=== PATIENT | male | born 1945 | race Caucasian/White ===

== ENCOUNTER 2016-12-03 23:41 | Emergency (ER) | payer MEDICARE ==
[~2016-12-03] VITALS: Ht 175.3 cm; Wt 108.9 kg
[2016-12-03 23:41] VITALS: BP_SYST 133
[2016-12-04 00:34] LABS: ANION GAP 7 (5-15); CALCIUM 8.6 mg/dL (8.4-11.0); CHLORIDE 105 mmol/L (98-107); CREATININE 1.69 mg/dL (0.55-1.30); GLUCOSE 76 mg/dL (70-99); POTASSIUM 4.3 mmol/L (3.5-5.1); SODIUM SERUM 140 mmol/L (136-145); UREA NITROGEN, BLOOD 32 mg/dL (8-21)
[2016-12-04 02:11] VITALS: BP_SYST 131
== END 2016-12-04 02:11 | disposition home or self-care (01) ==
LOC: SED 23:41
DX: E11.649 Type 2 diabetes mellitus with hypoglycemia without coma (principal); Z88.5 Allergy status to narcotic agent; Z88.6 Allergy status to analgesic agent
CPT/HCPCS: 36415; 80048; 99283

== ENCOUNTER 2018-12-21 03:21 | Emergency (ER) | payer MEDICARE ==
[~2018-12-21] VITALS: Ht 172.7 cm; Wt 96.6 kg
[~2018-12-21 03:21] MED LIST: ASPI-1155 PO; CALC-995 PO; FOLI1CAP PO; INSU100V SQ; LISI-209 PO; METO25TA3 PO; MYCO500T PO; PANT20TA2 PO; PRED1TAB PO; SIMV10TA2 PO; TACR0.5C PO; [UNRECOGNIZED DRUG - OTHER]; humulin
[2018-12-21 03:24] VITALS: BP_SYST 131
[2018-12-21] MEDS ORDERED: WARF1TAB2 PO (04:15)
[2018-12-21] MEDS ORDERED: HUMULIN INSULIN SQ (04:15)
[2018-12-21] MEDS ORDERED: HYDR20TA PO (04:15)
[2018-12-21] MEDS ORDERED: TACR0.5C PO (04:15)
[2018-12-21] MEDS ORDERED: AZIT250T PO (04:15)
[2018-12-21] MEDS ORDERED: DOCU-144 PO (04:15)
[2018-12-21] MEDS ORDERED: INSU100V SQ (04:15)
[2018-12-21] MEDS ORDERED: SULF1TAB3 PO (04:15)
[2018-12-21] MEDS ORDERED: VITD400 PO (04:15)
[2018-12-21 04:22] LABS: BASOPHILS % (AUTO) 0.3 % (0.0-2.0); EOSINOPHILS # (AUTO) 0.1 K/uL (0.0-0.4); EOSINOPHILS % (AUTO) 1.8 % (0.0-4.0); HEMATOCRIT 42.6 % (36-54); HEMOGLOBIN 13.7 g/dL (14.0-18.0); LYMPHOCYTES # (AUTO) 0.9 K/uL (1.0-5.5); MEAN CORPUSCULAR HEMOGLOBIN 29 pg (27-31); MEAN CORPUSCULAR HGB CONC 32 % (32-36); MEAN CORPUSCULAR VOLUME 90 fL (79.0-98.0); MONOCYTES # (AUTO) 0.6 K/uL (0.0-1.0); MONOCYTES % (AUTO) 7.9 % (1.7-9.3); NEUTROPHILS # (AUTO) 5.5 K/uL (1.8-7.7); PLATELET COUNT (AUTO) 208 K/uL (130-430); RED BLOOD CELL COUNT(AUTO) 4.73 MIL/uL (4.2-6.2); RED CELL DISTRIBUTION WIDTH 17.1 % (9.0-15.0); WHITE BLOOD COUNT (AUTO) 7.1 K/uL (4.8-10.8)
[2018-12-21 04:33] LABS: ANION GAP 12 (5-15); CALCIUM 8.2 mg/dL (8.4-11.0); CHLORIDE 107 mmol/L (98-107); GLUCOSE 100 mg/dL (70-99); POTASSIUM 3.6 mmol/L (3.5-5.1); SODIUM SERUM 141 mmol/L (136-145); UREA NITROGEN, BLOOD 28 mg/dL (8-21)
[2018-12-21 04:38] LABS: ALANINE AMINOTRANSFERASE 23 U/L (12-78); ALBUMIN 3.5 g/dL (3.4-4.8); ASPARTATE AMINOTRANSFERASE 19 U/L (10-37); TOTAL BILIRUBIN 0.3 mg/dL (0.0-1.0)
[2018-12-21 04:39] LABS: INR 1.4 (0.80-1.20)
[2018-12-21 04:45] LABS: PROTHROMBIN TIME 14.2 SECS (9.5-12.5)
[2018-12-21 04:49] LABS: BILIRUBIN,URINE NEGATIVE (NEGATIVE); CLARITY/URINE SL HAZY (CLEAR); COLOR,URINE YELLOW (YELLOW); GLUCOSE,URINE NEGATIVE (NEGATIVE); KETONES,URINE NEGATIVE (NEGATIVE); LEUKOCYTE ESTERASE ,URINE 2+ (NEGATIVE); NITRITE, URINE POSITIVE (NEGATIVE); PH,URINE 5.5 (5.0-8.0); PROTEIN URINE NEGATIVE (NEGATIVE); UROBILINOGEN,URINE 0.2 (0.2-1.0)
[2018-12-21 04:57] VITALS: BP_SYST 131
[2018-12-21 04:58] LABS: BLOOD, URINE TRACE (NEGATIVE)
[2018-12-21 05:05] LABS: BACTERIA,URINE MANY /HPF (None Seen); WBC,URINE 50-80 /HPF (0-3)
== END 2018-12-21 04:57 | disposition home or self-care (01) ==
LOC: SED 03:21
DX: E11.649 Type 2 diabetes mellitus with hypoglycemia without coma (principal); Z88.5 Allergy status to narcotic agent; Z88.6 Allergy status to analgesic agent; Z79.82 Long term (current) use of aspirin; Z79.4 Long term (current) use of insulin; Z79.899 Other long term (current) drug therapy
CPT/HCPCS: 36415; 80053; 81000-TC; 82962; 85025; 85610-TC; 85730-TC; 87086; 87186-TC; 99283

== ENCOUNTER 2021-10-24 12:23 | Inpatient (IN) | payer MEDICARE ==
[~2021-10-24] VITALS: Ht 175.3 cm; Wt 65.3 kg
[2021-10-24] VITALS (10 sets, daily range): BP systolic 77–129
[~2021-10-24 12:23] MED LIST changes: +DOCU-144 PO; +HUMULIN INSULIN SQ; +HYDR20TA PO; +SULF1TAB3 PO; +VITD400 PO; +WARF1TAB2 PO; +ZIT250 PO; -[UNRECOGNIZED DRUG - OTHER]; -humulin
--- NOTE | 2021-10-24 12:28 | NUR ---
1228 PT HAS A SKIN TEAR TO LEFT FOREARM SUSTANED BY EMS WHILE LIFTING ON THE GURNERY.
[2021-10-24] MEDS ORDERED: NACL 0.9% 1,000 ML IV ONE (12:30)
[2021-10-24] MEDS ORDERED: NACL 0.9% 2,000 ML IV ONE (12:45)
[2021-10-24 12:56] LABS: BASOPHILS % (AUTO) 0.5 % (0.0-2.0); EOSINOPHILS % (AUTO) 0.1 % (0.0-4.0); HEMATOCRIT 28.7 % (36-54); HEMOGLOBIN 9.4 g/dL (14.0-18.0); LYMPHOCYTES # (AUTO) 0.4 K/uL (1.0-5.5); LYMPHOCYTES % (AUTO) 4.4 % (20.5-51.5); MEAN CORPUSCULAR HEMOGLOBIN 31 pg (27-31); MEAN CORPUSCULAR HGB CONC 33 % (32-36); MEAN CORPUSCULAR VOLUME 94 fL (79.0-98.0); MONOCYTES # (AUTO) 0.4 K/uL (0.0-1.0); MONOCYTES % (AUTO) 5.1 % (1.7-9.3); NEUTROPHILS # (AUTO) 7.7 K/uL (1.8-7.7); NEUTROPHILS % (AUTO) 89.9 % (40.0-70.0); PLATELET COUNT (AUTO) 157 K/uL (130-430); RED BLOOD CELL COUNT(AUTO) 3.05 MIL/uL (4.2-6.2); RED CELL DISTRIBUTION WIDTH 17.5 % (9.0-15.0); WHITE BLOOD COUNT (AUTO) 8.6 K/uL (4.8-10.8)
[2021-10-24 13:01] LABS: ANION GAP 17 (5-15); CHLORIDE 111 mmol/L (98-107); CREATININE 5.49 mg/dL (0.55-1.30); GLUCOSE 179 mg/dL (70-99); POTASSIUM 3.9 mmol/L (3.5-5.1); SODIUM SERUM 135 mmol/L (136-145); UREA NITROGEN, BLOOD 93 mg/dL (8-21)
[2021-10-24 13:08] LABS: ACETONE, SERUM NEGATIVE (NEGATIVE)
--- NOTE | 2021-10-24 13:16 | NUR ---
12:30 B/P 62/33 12:33 B/P [place] 12:40 B/P 72/33 13:00 B/P 104/86 13:15 B/P 79/41
[2021-10-24 13:28] LABS: ALANINE AMINOTRANSFERASE 16 U/L (12-78); ASPARTATE AMINOTRANSFERASE 16 U/L (10-37); CALCIUM 6.3 mg/dL (8.4-11.0); TOTAL BILIRUBIN 0.1 mg/dL (0.0-1.0)
[2021-10-24 13:29] LABS: ALBUMIN 2.8 g/dL (3.4-4.8); C-REACTIVE PROTEIN QUANT 0.2 mg/dL (0-0.5)
--- NOTE | 2021-10-24 13:30 | NUR ---
13:30 18G RIGHT IJ BY SINTIA
--- NOTE | 2021-10-24 13:34 | NUR ---
EDMD AWARE OF CRITICAL LAB VALUE CA. 6.3 AND LOW CO2 7
[2021-10-24] MEDS ORDERED: NOREPINEPHRINE BITARTRATE 4 MG in NS 246 ML IV ONE (14:00)
--- NOTE | 2021-10-24 14:01 | NUR ---
F/C 16FR AYDEN COLORED URINE NO SEDIMENTS , AT BEDSIDE
[2021-10-24 14:14] LABS: BILIRUBIN,URINE NEGATIVE (NEGATIVE); BLOOD, URINE 2+ (NEGATIVE); COLOR,URINE YELLOW (YELLOW); GLUCOSE,URINE NEGATIVE (NEGATIVE); KETONES,URINE NEGATIVE (NEGATIVE); LEUKOCYTE ESTERASE ,URINE 3+ (NEGATIVE); NITRITE, URINE NEGATIVE (NEGATIVE); PROTEIN URINE 2+ (NEGATIVE); UROBILINOGEN,URINE 0.2 (0.2-1.0)
[2021-10-24 14:17] LABS: CLARITY/URINE HAZY (CLEAR)
[2021-10-24 14:32] LABS: BACTERIA,URINE MANY /HPF (None Seen); RBC,URINE 20-50 /HPF (0-3); WBC,URINE >100 /HPF (0-3)
--- NOTE | 2021-10-24 14:46 | NUR ---
Admit bed requested Patient will be admitted to care of Dr. TATE. Admitted to ICU unit. Diagnosis ACUTE RENAL FAILURE, SEVERE METABOLIC ACIDOSIS, DEHYDRATION Inpatient (Yes or No) YES Observation (Yes or No) NO Orientation concerns or request close to nursing station (Yes or No) NO Covid Status PENDING On vent or bipap NO Isolation requirements NO Needs a sitter NO From Home (Yes or if No enter name of facility) YES Requires Dialysis (Yes or No) NO Med Rec Completed (Yes of No) NO
[2021-10-24] MEDS ORDERED: SODIUM BICARBONATE 8.4% JECT 50 MEQ/50 ML SYRINGE ONE (14:59)
[2021-10-24] MEDS ORDERED: SODIUM BICARBONATE 8.4% JECT 50 MEQ/50 ML SYRINGE IVP ONE ×2 (15:00)
--- NOTE | 2021-10-24 15:03 | NUR ---
ASSISTING PRIMARY RN. LEVOPHED TITRATED TO 0.13 MCG/KG/MIN. BP 82/47 HR 85
--- NOTE | 2021-10-24 15:07 | NUR ---
LEVOPHED TITRATED UP TO 0.16 MCG/KG/MIN. BP 84/61 HR 86
[2021-10-24] MEDS ORDERED: HYDROCORTISONE SOD SUCC 100 MG/2 ML VIAL IVP ONE (17:00)
--- NOTE | 2021-10-24 17:00 | NUR ---
Called Dr. Dickerson with a consult,spoke with Guero from the exchange
--- NOTE | 2021-10-24 17:00 | NUR ---
ASSISTANCE REQUESTED FROM DOUG COLON, MEDS NOT GIVEN AT THIS TIME, WILL GET SUPPORT FROM ESTEVAN LESTER RN.
--- NOTE | 2021-10-24 17:13 | NUR ---
Called Dr. Chu with a consult, spoke with Janelle from the exchange
--- NOTE | 2021-10-24 17:17 | NUR ---
Called Dr. Snider with a consult,spoke with Michelle from the exchange
--- NOTE | 2021-10-24 17:25 | NUR ---
CONSULT: DR. FELI EDMOND HERE FOR CONSULT.
[2021-10-24] MEDS ORDERED: IPRATROPIUM/ALBUTEROL SULFATE 3 ML AMPUL.NEB (DUONEB) INH PRN (17:30)
[2021-10-24] MEDS ORDERED: CALCIUM GLUCONATE 2 GM in NS 100 ML IV ONE (17:30)
[2021-10-24] MEDS ORDERED: DEXTROSE 50% JECT 50 ML DISP.SYRIN IVP PRN (17:30)
[2021-10-24] MEDS ORDERED: metroNIDAZOLE 250 MG TABLET PO ONE (17:30)
[2021-10-24] MEDS ORDERED: NOREPINEPHRINE BITARTRATE 32 MG in NS 218 ML IV PRN (17:30)
--- NOTE | 2021-10-24 17:35 | NUR ---
CONSULT: DR. TOBI BRITTON HERE TO SEE PATIENT.
--- NOTE | 2021-10-24 17:42 | NUR ---
PT VOMITED AGAIN INTO NON-REBREATHER, QUICKLY SUCTIONED TO AVOID POSSIBLE ASPIRATION PNEUMONIA, DR APPLE INFORMED., NO ORDERS RECEIVED.
[2021-10-24] MEDS ORDERED: NOREPINEPHRINE BITARTRATE 4 MG in NS 246 ML IV PRN (17:45)
--- NOTE | 2021-10-24 18:27 | NUR ---
ADMISSION ASSESSMENT DONE AT BEDSIDE WITH HELP OF DTR, WENT HOME TO GET MED LIST.
[2021-10-24] MEDS: NACL 0.9% 1,000 ML IV ONE (19:00)
[2021-10-24 19:02] LABS: ANION GAP 17 (5-15); CHLORIDE 113 mmol/L (98-107); CREATININE 5.71 mg/dL (0.55-1.30); GLUCOSE 181 mg/dL (70-99); POTASSIUM 3.8 mmol/L (3.5-5.1); SODIUM SERUM 137 mmol/L (136-145); UREA NITROGEN, BLOOD 88 mg/dL (8-21)
--- NOTE | 2021-10-24 19:21 | NUR ---
NOTED IV FLUIDS SODIUM BICARB GOING IN WITH LEVOPHED. DOUG GARCIA INFORMED.
--- NOTE | 2021-10-24 19:30 | NUR ---
REPORT GIVEN TO NICOLASA LÓPEZ. INFOMRED CN, CALCIUM GLUCONATE N/A IN PYXIS, ALL OTHER MEDS TO BE GIVEN BY NIGHT RENE BALDWIN. SHE VERBALIZED UNDERSTANDING.
[2021-10-24] MEDS: IPRATROPIUM/ALBUTEROL SULFATE 3 ML AMPUL.NEB (DUONEB) INH SCH (19:51)
[2021-10-24] MEDS ORDERED: CALCIUM GLUCONATE 1 GM/10 ML VIAL ONE (20:13)
[2021-10-24] MEDS: CLINDAMYCIN 600 mg/50mL D5W 50 ML IV SCH (20:33)
[2021-10-24] MEDS: CEFEPIME 1 GM in D5W 50 ML IV SCH (20:35)
[2021-10-24] MEDS: TACROLIMUS ANHYDROUS 0.5 MG CAPSULE (PROGRAF) PO SCH (21:00)
[2021-10-24] MEDS ORDERED: mycophenolate mofetiL 250 MG CAPSULE PO SCH (21:00)
[2021-10-24] MEDS: LACTOBACILLUS RHAMNOSUS GG 1 CAP CAPSULE PO SCH (21:00)
[2021-10-24] MEDS: metroNIDAZOLE 250 MG TABLET PO SCH (22:00)
[2021-10-24 22:27] LABS: INR > 9.0 (0.80-1.20); PROTHROMBIN TIME > 90.0 SECS (9.5-12.5)
[2021-10-24] MEDS: SODIUM BICARBONATE 8.4% JECT 150 MEQ in D5W 1,000 ML IVP SCH (22:40)
[2021-10-24] MEDS ORDERED: PHYTONADIONE 10 MG/ML AMP SUBCUT ONE (23:15)
[2021-10-25] VITALS (25 sets, daily range): BP systolic 97–142
[2021-10-25] MEDS: HYDROCORTISONE SOD SUCC 100 MG/2 ML VIAL IVP SCH ×4 (00:25→19:21)
[2021-10-25] MEDS: CLINDAMYCIN 600 mg/50mL D5W 50 ML IV SCH ×4 (00:26→19:23)
[2021-10-25] MEDS: INSULIN REGULAR, HUMAN 100 UNITS/ML, 10 ML VIAL (humuLIN R) SUBCUT PRN ×4 (00:45→19:19)
[2021-10-25] MEDS: IPRATROPIUM/ALBUTEROL SULFATE 3 ML AMPUL.NEB (DUONEB) INH SCH ×4 (01:00→19:40)
[2021-10-25] MEDS: SODIUM BICARBONATE 8.4% JECT 150 MEQ in D5W 1,000 ML IVP SCH ×2 (02:12→19:22)
[2021-10-25] MEDS: KCL 40 mEq in 100 mL (PREMIX) 100 ML IV SCH ×2 (03:15→23:00)
--- NOTE | 2021-10-25 06:00 | NUR ---
--RECEIVED PT AWAKE/ALERT BUT CONFUSED. PT KEPT STATING THAT HE WAS AT HOME. PT IS A NEW ADMIT FROM HOME. RECEIVED REPORT FROM RENE WESTFALL. PT'S FAMILY/ AT BEDSIDE. PT HAS O2 2L AND SOUNDS SLIGHTLY CONGESTED. PT HAS BEEN IN SR/S.TACH-NO ECTOPY. HR WENT UP TO 160-180'S BRIEFLY. CN TEO IS AWARE. STAT EKG DONE-SHOWS S.TACH. PT ALSO GIVEN NS BOLUS-1LITER. PT HAS RIGHT EJ WITH LEVOPHED DRIP-WAS AT 0/16MCG, NOW DOWN TO 0.08MCG. BP HAS BEEN WNL. PT ALSO HAS BICARB DRIP AT 150CC/HR VIA LEFT ARM PIC/AC. PT HAS ELEVATED COAG LEVELS WITH INR OF 9.0. PT HAS BEEN BLEEDING SLOWLY FROM SKIN TEARS IN RIGHT ARM(DRSG APPLIED) AND URINE IS HEMATURIC. PT HAS 1000CC OUT(DARK RED-RUST COLOR WITH YELL. PUS). PT ALSO HAS BEEN HAVING LARGE AMT OF BRN/BUTCHER DIARRHEA. STOOL SPEC. SENT FOR C.DIFF AND OB. AM LABS DONE. PT HAS STAGE 2 SACRAL DECUB. PT WAS TRYING TO GET OUT OF BED EARLIER. BED ALARM IS ON AND PT IS CLOSE TO NURSING STATION. BATH AND LINEN CHANGED DONE. PT ENDORSED TO RENE BALDWIN IN STABLE BUT GUARDED COND. SHAWNEE LÓPEZ
--- NOTE | 2021-10-25 06:00 | NUR ---
FURTHER NOTE: DR. BRITTON CONTACTED ALSO LAST NIGHT CONCERNING ELEVATED INR OF 9.0(CRITICAL LAB). VIT K 5MG ORD. SUBQ. DOUG BRUCE IS AWARE. COAG LEVELS ORD FOR AM LABS. SHAWNEE LÓPEZ
[2021-10-25] MEDS: metroNIDAZOLE 250 MG TABLET PO SCH ×3 (06:56→22:00)
[2021-10-25 07:57] LABS: PROTHROMBIN TIME > 90.0 SECS (9.5-12.5)
[2021-10-25 07:58] LABS: INR > 9.0 (0.80-1.20)
[2021-10-25] MEDS: CHOLECALCIFEROL (VITAMIN D3) 2,000 UNIT TABLET PO SCH (09:00)
[2021-10-25] MEDS: LACTOBACILLUS RHAMNOSUS GG 1 CAP CAPSULE PO SCH ×2 (09:00→21:00)
[2021-10-25] MEDS: ASPIRIN 81 MG TAB.CHEW PO SCH (09:00)
[2021-10-25 10:16] LABS: BASOPHILS % (AUTO) 0.1 % (0.0-2.0); HEMATOCRIT 22.8 % (36-54); HEMOGLOBIN 7.5 g/dL (14.0-18.0); LYMPHOCYTES # (AUTO) 0.1 K/uL (1.0-5.5); LYMPHOCYTES % (AUTO) 0.9 % (20.5-51.5); MEAN CORPUSCULAR HEMOGLOBIN 30 pg (27-31); MEAN CORPUSCULAR HGB CONC 33 % (32-36); MEAN CORPUSCULAR VOLUME 93 fL (79.0-98.0); MONOCYTES # (AUTO) 0.2 K/uL (0.0-1.0); MONOCYTES % (AUTO) 2.9 % (1.7-9.3); NEUTROPHILS # (AUTO) 7.1 K/uL (1.8-7.7); NEUTROPHILS % (AUTO) 96.1 % (40.0-70.0); PLATELET COUNT (AUTO) 122 K/uL (130-430); RED BLOOD CELL COUNT(AUTO) 2.45 MIL/uL (4.2-6.2); RED CELL DISTRIBUTION WIDTH 17.7 % (9.0-15.0); WHITE BLOOD COUNT (AUTO) 7.4 K/uL (4.8-10.8)
--- NOTE | 2021-10-25 10:32 | NUR ---
Discharge Planning: DCP faxed pt referral to [facility].
[2021-10-25] MEDS: SIMVASTATIN 10 MG TABLET PO SCH (10:38)
[2021-10-25] MEDS: TACROLIMUS ANHYDROUS 0.5 MG CAPSULE (PROGRAF) PO SCH ×2 (10:38→21:00)
[2021-10-25 10:46] LABS: ANION GAP 16 (5-15); CHLORIDE 107 mmol/L (98-107); CREATININE 5.27 mg/dL (0.55-1.30); SODIUM SERUM 134 mmol/L (136-145); UREA NITROGEN, BLOOD 75 mg/dL (8-21)
[2021-10-25 10:59] LABS: POTASSIUM 2.7 mmol/L (3.5-5.1)
[2021-10-25] MEDS ORDERED: PHYTONADIONE 10 MG/ML AMP SUBCUT ONE (11:00)
[2021-10-25 11:01] LABS: CALCIUM 5.9 mg/dL (8.4-11.0); GLUCOSE 448 mg/dL (70-99)
[2021-10-25 11:11] LABS: ALBUMIN 2.2 g/dL (3.4-4.8); BILIRUBIN,DIRECT 0.2 mg/dL (0.0-0.3); PHOSPHORUS 4.9 mg/dL (2.7-4.5); TOTAL BILIRUBIN 0.3 mg/dL (0.0-1.0)
[2021-10-25] MEDS ORDERED: POTASSIUM CHLORIDE 40 MEQ in D5W 250 ML IV ONE (11:15)
[2021-10-25] MEDS ORDERED: PANTOPRAZOLE SODIUM 40 MG/VIAL (PROTONIX) IVP ONE (11:30)
[2021-10-25] MEDS ORDERED: CALCIUM GLUCONATE 2 GM in NS 100 ML IV ONE ×2 (13:00→18:45)
--- NOTE | 2021-10-25 15:09 | NUR ---
Dietitian Recommendations * Consider GI consult * Consider advance diet if/when medically appropriate (soft (low fiber/bland) diet) MADHU, RD Please refer to Nutrition Assessment for details. Addendum: 10/25/21 at [address] Amended: Links added.
--- NOTE | 2021-10-25 16:52 | NUR ---
WOUND EVALUATION: Wound Consult received from Dr. Parker. Thank you, Dr. Parker, for the consult. Patient received in a Sabinal Bed with an IsoFlex YENNI mattress, awake, drowsy, and oriented. Patient is unable to turn in bed independently. Lukas Score is a 13. Past Medical History: Hypertension, anticoagulation with Coumadin, lung transplant for pulmonary fibrosis in 2013. Patient admitted with severe Metabolic Acidosis and DAVID. Recent Labs: WBC 7.4, RBC 2.45, hemoglobin 7.5, hematocrit 22.8, sodium 134, potassium 2.7, BUN 75, creatinine 5.27, glucose 448, POC glucose 411, calcium 5.9, phosphorus 4.9, serum total protein 3.7, albumin 2.2, PT > 90, INR > 9.0, PTT 93.7. Microbiology: MRSA screen results in progress. Stool C. difficile results in progress. Stool occult blood results in progress. Blood culture results x2 in progress. Urine culture results in progress. Second MRSA screen results in progress. Intrinsic factors that delay wound healing: Acute Kidney Injury, severe anemia from possible blood loss. Extrinsic factors that delay wound healing: Decreased mobility. Wound Assessment: 1. Coccygeal area: Stage 3 pressure ulcer, present on admission. Wound bed has 90% pink tissue, 10% red tissue. No odor, no drainage. Periwound intact. Wound measures 1.7 cm x 2.3 cm. Recommend: Cleanse wound with normal saline. Apply moisture barrier cream to wound and beto-wound. Apply hydrogel to wound bed. Cover with foam dressing. Perform wound care daily, and as needed for dressing soiling or dislodgement. Also recommend: Reposition patient side to side only every 2 hours with pillow support and off-load pressure areas with pillows for pressure re-distribution. Offload, elevate and float bilateral heels with pillows. Perform skin care and monitor skin integrity Q shift. Use moisture barrier cream on buttocks and other moisture susceptible areas QID and as needed for soiling. Place patient on a low air-loss mattress. Addendum: 10/25/21 at 1820 by Aime Duggan RN Error, Venelex ointment, not Hydrogel to wound bed.
[2021-10-25 18:22] LABS: ANION GAP 11 (5-15); CHLORIDE 104 mmol/L (98-107); CREATININE 5.02 mg/dL (0.55-1.30); SODIUM SERUM 136 mmol/L (136-145); UREA NITROGEN, BLOOD 78 mg/dL (8-21)
[2021-10-25 18:31] LABS: GLUCOSE 602 mg/dL (70-99); POTASSIUM 2.4 mmol/L (3.5-5.1)
[2021-10-25] MEDS ORDERED: COMMUNICATION ORDER XX ONE (18:45)
[2021-10-25] MEDS: CEFEPIME 1 GM in D5W 50 ML IV SCH (19:00)
[2021-10-25] MEDS ORDERED: CALCIUM GLUCONATE 1 GM in NS 100 ML IV ONE (19:15)
[2021-10-25] MEDS ORDERED: LOPERAMIDE HCL 2 MG CAPSULE PO PRN (22:00)
[2021-10-25] MEDS: LR 1,000 ML IV SCH (22:00)
[2021-10-26] VITALS (22 sets, daily range): BP systolic 99–156
[2021-10-26] MEDS: IPRATROPIUM/ALBUTEROL SULFATE 3 ML AMPUL.NEB (DUONEB) INH SCH ×4 (01:00→20:28)
[2021-10-26] MEDS: LR 1,000 ML IV SCH ×4 (04:40→23:32)
[2021-10-26] MEDS: CLINDAMYCIN 600 mg/50mL D5W 50 ML IV SCH ×2 (06:00)
[2021-10-26] MEDS: HYDROCORTISONE SOD SUCC 100 MG/2 ML VIAL IVP SCH ×4 (06:00→22:00)
[2021-10-26] MEDS: metroNIDAZOLE 250 MG TABLET PO SCH (06:00)
[2021-10-26 06:30] LABS: INR 1.5 (0.80-1.20); PROTHROMBIN TIME 14.9 SECS (9.5-12.5)
[2021-10-26 07:21] LABS: BASOPHILS % (AUTO) 0.3 % (0.0-2.0); EOSINOPHILS # (AUTO) 0.1 K/uL (0.0-0.4); EOSINOPHILS % (AUTO) 1.3 % (0.0-4.0); LYMPHOCYTES # (AUTO) 0.1 K/uL (1.0-5.5); LYMPHOCYTES % (AUTO) 1.4 % (20.5-51.5); MEAN CORPUSCULAR HEMOGLOBIN 31 pg (27-31); MEAN CORPUSCULAR HGB CONC 34 % (32-36); MEAN CORPUSCULAR VOLUME 91 fL (79.0-98.0); MONOCYTES # (AUTO) 0.3 K/uL (0.0-1.0); MONOCYTES % (AUTO) 3.9 % (1.7-9.3); NEUTROPHILS # (AUTO) 6.3 K/uL (1.8-7.7); NEUTROPHILS % (AUTO) 93.1 % (40.0-70.0); PLATELET COUNT (AUTO) 130 K/uL (130-430); RED CELL DISTRIBUTION WIDTH 16.7 % (9.0-15.0); WHITE BLOOD COUNT (AUTO) 6.7 K/uL (4.8-10.8)
[2021-10-26] MEDS: ASPIRIN 81 MG TAB.CHEW PO SCH ×2 (08:35→08:47)
[2021-10-26] MEDS: LACTOBACILLUS RHAMNOSUS GG 1 CAP CAPSULE PO SCH ×2 (08:35→21:00)
[2021-10-26] MEDS: TACROLIMUS ANHYDROUS 0.5 MG CAPSULE (PROGRAF) PO SCH ×2 (08:36→21:00)
[2021-10-26] MEDS: SIMVASTATIN 10 MG TABLET PO SCH (08:38)
[2021-10-26] MEDS: BALSAM PERU/CASTOR OIL 56.7 GM OINT...G. TP SCH (08:38)
[2021-10-26] MEDS: CHOLECALCIFEROL (VITAMIN D3) 2,000 UNIT TABLET PO SCH (08:41)
[2021-10-26 08:45] LABS: ALANINE AMINOTRANSFERASE 12 U/L (12-78); ALBUMIN 2.1 g/dL (3.4-4.8); ANION GAP 13 (5-15); ASPARTATE AMINOTRANSFERASE 13 U/L (10-37); CHLORIDE 109 mmol/L (98-107); CREATININE 5.16 mg/dL (0.55-1.30); GLUCOSE 278 mg/dL (70-99); POTASSIUM 3.1 mmol/L (3.5-5.1); SODIUM SERUM 138 mmol/L (136-145); TOTAL BILIRUBIN 0.3 mg/dL (0.0-1.0); UREA NITROGEN, BLOOD 82 mg/dL (8-21)
[2021-10-26] MEDS ORDERED: PANTOPRAZOLE SODIUM 40 MG/VIAL (PROTONIX) IVP SCH (09:00)
[2021-10-26 09:01] LABS: RED BLOOD CELL COUNT(AUTO) 1.77 MIL/uL (4.2-6.2)
[2021-10-26 09:02] LABS: HEMATOCRIT 16.1 % (36-54); HEMOGLOBIN 5.5 g/dL (14.0-18.0)
[2021-10-26 09:08] LABS: CALCIUM 5.9 mg/dL (8.4-11.0)
[2021-10-26] MEDS ORDERED: INSULIN GLARGINE 100 UNITS/ML 10 ML VIAL SUBCUT ONE (09:30)
[2021-10-26] MEDS ORDERED: POTASSIUM CHLORIDE 20 MEQ TAB.PRT.SR PO ONE (09:45)
[2021-10-26] MEDS ORDERED: SODIUM BICARBONATE 650 MG TABLET PO ONE (10:00)
[2021-10-26 10:12] LABS: LYMPHOCYTES # (AUTO) 0.1 K/uL (1.0-5.5); MONOCYTES # (AUTO) 0.3 K/uL (0.0-1.0); NEUTROPHILS # (AUTO) 6.5 K/uL (1.8-7.7); NEUTROPHILS % (AUTO) 94.1 % (40.0-70.0); PLATELET COUNT (AUTO) 107 K/uL (130-430); WHITE BLOOD COUNT (AUTO) 6.9 K/uL (4.8-10.8)
[2021-10-26 10:16] LABS: BASOPHILS % (AUTO) 0.1 % (0.0-2.0); LYMPHOCYTES % (AUTO) 1.2 % (20.5-51.5); MEAN CORPUSCULAR HEMOGLOBIN 30 pg (27-31); MEAN CORPUSCULAR HGB CONC 33 % (32-36); MEAN CORPUSCULAR VOLUME 91 fL (79.0-98.0); MONOCYTES % (AUTO) 4.6 % (1.7-9.3); RED CELL DISTRIBUTION WIDTH 17.1 % (9.0-15.0)
[2021-10-26 10:19] LABS: RED BLOOD CELL COUNT(AUTO) 1.84 MIL/uL (4.2-6.2)
[2021-10-26 10:20] LABS: HEMATOCRIT 16.7 % (36-54); HEMOGLOBIN 5.6 g/dL (14.0-18.0)
[2021-10-26] MEDS ORDERED: CALCIUM GLUCONATE 2 GM in NS 100 ML IV ONE (11:00)
[2021-10-26] MEDS: SODIUM BICARBONATE 650 MG TABLET PO SCH ×2 (11:52→17:34)
[2021-10-26] MEDS: INSULIN REGULAR, HUMAN 100 UNITS/ML, 10 ML VIAL (humuLIN R) SUBCUT PRN ×2 (12:50→17:56)
--- NOTE | 2021-10-26 15:53 | NUR ---
RECV'D PT FROM VAL RN. PT AAO, FORGETFUL AT TIMES. VSS, AFEBRILE. NAD, DENIES ANY SOB/PAIN. CONT ON CARDIAC MONTIOR WITH ST NOTED RATE 100-110'S. DENIES ANY CP. STG 2 TO SACRUM. PETECHIAE TO BILATERAL LOWER EXTREMITIES NOTED. BILATERAL UPPER EXTREMITIES WITH EDEMA AND LARGE HEMATOMAS. PRESSURE DRESSING TO RIGHT FOREARM. REMOVED DRESSING, ARM NOTED WITH SMALL SKIN TEARS. SKIN LOOSE AND THIN. DRESSING TO LEFT FOREARM C/D/I. AM H/H 5.05/27. DR. MADRID AWARE AND WANTED REPEAT. REPEAT HGB 5.6. ORDER TO TRANSFUSE [address] MADRID MADE AWARE OF 3 UNIT OF [facility] REPORTEDLY DAMAGED CAUSING DELAY IN [place]. INR 1.[address] EDMOND ORDERED TO NOT TRANSFUSE 3 UNIT OF [facility]. 1ST UNIT OF [facility] TRANSFUSED WITHOUT A/R NOTED. FAMILY AT . PICC LINE PATENT, DRESSING C/D/I. RIGHT EJ IV ACCESS PATENT. TOLERATING CLEAR LIQUIDS WELL WITHOUT N/V. RECV'D CALL FROM [facility], UPDATED ON STATUS. AUTH GIVEN FOR TODAY. PT POSSIBLE TRANSFER TOMORROW TO [facility] WHEN MORE STABLE. NO ACTIVE BLEEDING NOTED. ALL NEEDS ATTENDED TO. 2ND UNIT OF [facility] CURRENTLY TRANSFUSING. WILL CONT TO MONITOR.
[2021-10-26] MEDS: CEFEPIME 1 GM in D5W 50 ML IV SCH (18:24)
[2021-10-26 18:26] LABS: BASOPHILS % (AUTO) 0.2 % (0.0-2.0); HEMATOCRIT 24.1 % (36-54); HEMOGLOBIN 8.2 g/dL (14.0-18.0); LYMPHOCYTES # (AUTO) 0.1 K/uL (1.0-5.5); LYMPHOCYTES % (AUTO) 1.2 % (20.5-51.5); MEAN CORPUSCULAR HEMOGLOBIN 30 pg (27-31); MEAN CORPUSCULAR HGB CONC 34 % (32-36); MONOCYTES # (AUTO) 0.6 K/uL (0.0-1.0); MONOCYTES % (AUTO) 5.4 % (1.7-9.3); NEUTROPHILS # (AUTO) 9.9 K/uL (1.8-7.7); NEUTROPHILS % (AUTO) 93.2 % (40.0-70.0); PLATELET COUNT (AUTO) 97 K/uL (130-430); RED BLOOD CELL COUNT(AUTO) 2.72 MIL/uL (4.2-6.2); RED CELL DISTRIBUTION WIDTH 16.7 % (9.0-15.0); WHITE BLOOD COUNT (AUTO) 10.7 K/uL (4.8-10.8)
[2021-10-26 18:27] LABS: MEAN CORPUSCULAR VOLUME 89 fL (79.0-98.0)
[2021-10-26 18:56] LABS: ANION GAP 16 (5-15); CHLORIDE 106 mmol/L (98-107); CREATININE 4.81 mg/dL (0.55-1.30); GLUCOSE 251 mg/dL (70-99); SODIUM SERUM 136 mmol/L (136-145); UREA NITROGEN, BLOOD 72 mg/dL (8-21)
[2021-10-26 18:58] LABS: POTASSIUM 2.8 mmol/L (3.5-5.1)
[2021-10-26 18:59] LABS: CALCIUM 6.3 mg/dL (8.4-11.0)
--- NOTE | 2021-10-26 19:14 | NUR ---
CALLED BY LAB FOR CRITICAL POTASSIUM 2.8 AND CALCIUM 6.3. PAGED DR. BRITTON TO UPDATE. WAITING FOR CALL BACK. ENDORSED CARE TO MUSHROOM CUTTER JOANNE.
--- NOTE | 2021-10-26 19:22 | NUR ---
CONSULT PAGED DR RICE FOR A CONSULT, SPOKE TO ANSWERING SERVICE, CHRISS, HE STATED THAT DOCTOR BRANDT IS STOCK PARTS FABRICATOR TONIGHT.
[2021-10-26] MEDS: PANTOPRAZOLE SODIUM 40 MG/VIAL (PROTONIX) IVP SCH (21:00)
--- NOTE | 2021-10-26 22:35 | NUR ---
TRANSFER OF CARE PATIENT RECEIVED AT THIS TIME TO [facility] FLOOR, ROOM 118B. PATIENT REPORT GIVEN AT BEDSIDE FROM RENE JOSEPH. AT THIS TIME, PATIENT IS RESTING IN BED, STABLE, NO SIGNS OF RESPIRATORY DISTRESS. IS AT BEDSIDE. AT THIS TIME, PATIENT IS FULLY ALERT AT THIS TIME, HE DEMONSTRATED BACK CORRECT USAGE OF CALL LIGHT. RICHARDS IS SECURED AND DRAINING PER GRAVITY. PATIENT VERBALIZES NO PAIN. PLAN OF CARE COMMUNICATED TO THE PATIENT AND HIS JUANJOSE AT BEDSIDE. BED IS LOCKED, ALARMED, AND AT THIS LOWEST LEVEL. FALL, SAFETY, RESPIRATORY, AND ASPIRATION PRECAUTIONS WILL BE TAKEN THROUGHOUT THE SHIFT.
[2021-10-27 00:01] VITALS: BP_SYST 124
[2021-10-27] MEDS: IPRATROPIUM/ALBUTEROL SULFATE 3 ML AMPUL.NEB (DUONEB) INH SCH ×4 (01:00→20:17)
--- NOTE | 2021-10-27 01:50 | NUR ---
PATIENT WOKE UP CONFUSED PATIENT WOKE UP CONFUSED AT THIS TIME, HE FORGOT THAT HE IS WEAK AND ALMOST ATTEMPTED TO GET OUT OF BED. PATIENT ASKED IF HE CAN CALL HIS , PATIENT INFORMED THAT IT IS ALMOST 2 AM, HE INSISTED TO CALL HIS BECAUSE "SHE'S EXPECTING MY CALL". HELPED PATIENT CALL WITH BEDSIDE PHONE, PATIENT SAID "[facility] COME PICK ME UP OR I'M GOING TO GET OUT OF BED AND FALL. OR SEND SOMEBODY TO GET ME NOW" PATIENT REORIENTED TO HIS SITUATION. ALSO COMMUNICATED PLAN WITH PATIENT'S , TO TELL PATIENT THAT HIS WILL COME BACK AQUATICS DIRECTOR, TO HELP KEEP PATIENT CALM DURING THE NIGHT. BED IS LOCKED, ALARMED, AND AT THE LOWEST LEVEL.
[2021-10-27] MEDS: HYDROCORTISONE SOD SUCC 100 MG/2 ML VIAL IVP SCH ×2 (06:13→17:13)
[2021-10-27] MEDS: LR 1,000 ML IV SCH ×3 (06:13→22:13)
[2021-10-27] MEDS: INSULIN REGULAR, HUMAN 100 UNITS/ML, 10 ML VIAL (humuLIN R) SUBCUT PRN ×2 (06:23→11:33)
--- NOTE | 2021-10-27 06:45 | NUR ---
CLOSING NOTE AFTER REORIENTATION, PATIENT REMAINED COOPERATIVE AND STAYED IN BED THROUGHOUT THE REST OF THE SHIFT. PATIENT SLEPT WELL. PT EVAL RECOMMENDED. BED IS LOCKED, ALARMED, AND AT THE LOWEST LEVEL. FALL, SAFETY, RESPIRATORY PRECAUTIONS HAVE BEEN IN PLACE THROUGHOUT THE SHIFT. WILL CONTINUE TO MONITOR UNTIL SHIRT REPORT IS GIVEN AT BEDSIDE TO AM NURSE.
[2021-10-27 07:01] LABS: BASOPHILS % (AUTO) 0.1 % (0.0-2.0); HEMATOCRIT 23.8 % (36-54); HEMOGLOBIN 8.1 g/dL (14.0-18.0); LYMPHOCYTES # (AUTO) 0.1 K/uL (1.0-5.5); LYMPHOCYTES % (AUTO) 1.3 % (20.5-51.5); MEAN CORPUSCULAR HEMOGLOBIN 30 pg (27-31); MEAN CORPUSCULAR HGB CONC 34 % (32-36); MEAN CORPUSCULAR VOLUME 88 fL (79.0-98.0); MONOCYTES # (AUTO) 0.4 K/uL (0.0-1.0); MONOCYTES % (AUTO) 4.5 % (1.7-9.3); NEUTROPHILS % (AUTO) 94.1 % (40.0-70.0); PLATELET COUNT (AUTO) 96 K/uL (130-430); RED BLOOD CELL COUNT(AUTO) 2.71 MIL/uL (4.2-6.2); RED CELL DISTRIBUTION WIDTH 17.2 % (9.0-15.0); WHITE BLOOD COUNT (AUTO) 9.6 K/uL (4.8-10.8)
[2021-10-27 07:24] LABS: ALANINE AMINOTRANSFERASE 13 U/L (12-78); ALBUMIN 2.2 g/dL (3.4-4.8); ANION GAP 14 (5-15); ASPARTATE AMINOTRANSFERASE 18 U/L (10-37); CHLORIDE 107 mmol/L (98-107); CREATININE 4.67 mg/dL (0.55-1.30); GLUCOSE 276 mg/dL (70-99); SODIUM SERUM 138 mmol/L (136-145); TOTAL BILIRUBIN 0.6 mg/dL (0.0-1.0); UREA NITROGEN, BLOOD 74 mg/dL (8-21)
--- NOTE | 2021-10-27 07:54 | NUR ---
OPENING NOTE REPORT RCVD BEDSIDE FROM OUTGOING NOC RN, ALL CARES ASSUMED.
--- NOTE | 2021-10-27 08:05 | NUR ---
CRITICAL LAB: Laboratory called with critical lab value K+ 2.7 and Ca+ 5.9. Medical record number and patient name verified. Read back of values done. Dr. Parker notified of value.
[2021-10-27 08:06] LABS: CALCIUM 5.9 mg/dL (8.4-11.0); POTASSIUM 2.7 mmol/L (3.5-5.1)
--- NOTE | 2021-10-27 08:10 | NUR ---
HIGH ALERT NOTE: Called Dr. TATE back at and identified within the medical roster to verify physician authenticity. Orders for K+ and Ca+ placed per MD orders.
[2021-10-27] MEDS ORDERED: CALCIUM GLUCONATE 2 GM in NS 100 ML IV ONE ×3 (08:45→20:45)
[2021-10-27] MEDS ORDERED: POTASSIUM CHLORIDE 20 MEQ/PKT PACKET PO ONE ×2 (08:45→20:30)
[2021-10-27] MEDS ORDERED: INSULIN GLARGINE 100 UNITS/ML 10 ML VIAL SUBCUT SCH (09:00)
[2021-10-27 09:20] VITALS: BP_SYST 124
[2021-10-27] MEDS: PANTOPRAZOLE SODIUM 40 MG/VIAL (PROTONIX) IVP SCH ×2 (09:29→21:41)
[2021-10-27] MEDS: LACTOBACILLUS RHAMNOSUS GG 1 CAP CAPSULE PO SCH ×2 (09:29→21:41)
[2021-10-27] MEDS: TACROLIMUS ANHYDROUS 0.5 MG CAPSULE (PROGRAF) PO SCH ×2 (09:29→21:42)
[2021-10-27] MEDS: ASPIRIN 81 MG TAB.CHEW PO SCH (09:30)
[2021-10-27] MEDS: SODIUM BICARBONATE 650 MG TABLET PO SCH ×4 (09:30→21:41)
[2021-10-27] MEDS: SIMVASTATIN 10 MG TABLET PO SCH (09:30)
[2021-10-27] MEDS: CHOLECALCIFEROL (VITAMIN D3) 2,000 UNIT TABLET PO SCH ×2 (09:30→21:00)
[2021-10-27] MEDS: BALSAM PERU/CASTOR OIL 56.7 GM OINT...G. TP SCH (09:32)
--- NOTE | 2021-10-27 11:32 | NUR ---
BS 242
--- NOTE | 2021-10-27 12:15 | NUR ---
DR. TATE MAKING ROUNDS, BEDSIDE REPORT GIVEN AND ALL QUESTIONS ANSWERED. AT BEDSIDE.
--- NOTE | 2021-10-27 12:30 | NUR ---
DRESSING CHANGED TO BUE, SKIN TEARS NOTED WITH COPIOUS WEEPING.
[2021-10-27 12:43] VITALS: BP_SYST 120
--- NOTE | 2021-10-27 12:45 | NUR ---
PIV D/C TO LEFT AC, RIGHT EJ D/C. RIGHT UPPER PICC LINE REMAINS IN PLACE.
--- NOTE | 2021-10-27 12:57 | NUR ---
PATIENTS DIET ADVANCED TO FULL LIQUID.
[2021-10-27] MEDS ORDERED: NEPHROVITE, (FOLIC ACID/VITAMIN B COMP W-C 1 TAB) PO ONE (13:00)
--- NOTE | 2021-10-27 13:11 | NUR ---
DR. EDMOND MAKING ROUNDS, BEDSIDE REPORT GIVEN.
[2021-10-27] MEDS: POTASSIUM CHLORIDE 20 MEQ TAB.PRT.SR PO SCH ×2 (14:37→21:41)
--- NOTE | 2021-10-27 15:03 | NUR ---
US TECH AT BEDSIDE, DVT CONFIRMED TO MD MARIBEL AWARE.
[2021-10-27 16:45] VITALS: BP_SYST 122
--- NOTE | 2021-10-27 17:14 | NUR ---
PATIENT PRESENTS WITH INCREASE IN COUGHING, SPUTUM DARK RED IN COLOR, APPROX 20ML X3, PER PATIENT HE HAS NEVER COUGHED UP THIS TYPE OF SPUTUM. PATIENT IN NO ACUTE DISTRESS AND OR DISCOMFORT, WILL PAGE DR. FELI COLE TO MAKE HIM AWARE.
--- NOTE | 2021-10-27 17:20 | NUR ---
SPOKE WITH DR. EDMOND, STAT CXR ORDERED, PER MD NOTIFY HIM WITH RESULTS.
--- NOTE | 2021-10-27 17:55 | NUR ---
LAB AT BEDSIDE, RENE APOLINAR FROM PICC
--- NOTE | 2021-10-27 18:01 | NUR ---
CXR DONE AT BEDSIDE, PENDING RESULTS.
[2021-10-27 18:21] LABS: ANION GAP 10 (5-15); CHLORIDE 109 mmol/L (98-107); CREATININE 4.46 mg/dL (0.55-1.30); GLUCOSE 140 mg/dL (70-99); POTASSIUM 3.1 mmol/L (3.5-5.1); SODIUM SERUM 139 mmol/L (136-145); UREA NITROGEN, BLOOD 70 mg/dL (8-21)
[2021-10-27 18:43] LABS: CALCIUM 5.6 mg/dL (8.4-11.0)
--- NOTE | 2021-10-27 18:43 | NUR ---
CRITICAL LAB: Laboratory called with critical lab Ca+ 5.6. Medical record number and patient name verified. Read back of values done. Dr. Dickerson made aware of critical lab value
--- NOTE | 2021-10-27 18:45 | NUR ---
DR. EDMOND AWARE OF CRITICAL, NEW ORDERS RCVD AND TRANSCRIBED.
--- NOTE | 2021-10-27 18:50 | NUR ---
CHARGE AWARE OF CRITICAL LABS, PATIENT REMAINS STABLE IN NO ACUTE DISTRESS AND OR DISCOMFORT.
--- NOTE | 2021-10-27 18:55 | NUR ---
CLOSING NOTE: REPORT GIVEN TO INCOMING NOC RN, ALL CARES ENDORSED.
[2021-10-27 20:00] VITALS: BP_SYST 136
[2021-10-27] MEDS: CEFEPIME 1 GM in D5W 50 ML IV SCH (20:12)
--- NOTE | 2021-10-27 20:29 | NUR ---
FOUND PT ON ROOM AIR, SPO2 89%. POST MED NEB TX PT REFUSED NASAL CANNULA. EXPLAINED TO PT THE BENEFIT OF WEAR OXYGEN, PT STILL REFUSED. NASAL CANNULA AT BEDSIDE IF NEEDED
[2021-10-27] MEDS ORDERED: CALCIUM CARBONATE 500 MG/ TAB.CHEW PO ONE (20:45)
[2021-10-27] MEDS ORDERED: POTASSIUM CHLORIDE 20 MEQ TAB.PRT.SR PO SCH (21:00)
[2021-10-27] MEDS ORDERED: CALCIUM GLUCONATE 1 GM/10 ML VIAL ONE ×2 (21:20→21:26)
[2021-10-27] MEDS: CALCIUM CARBONATE 500 MG/ TAB.CHEW PO SCH (21:54)
--- NOTE | 2021-10-27 22:00 | NUR ---
Patient is in bed resting no s/s of distress at this time. Chest rise is even and unlabored on RA. Patient received at evening medications. Dr. Poole was called for verification of duplicate medications of calcium carbonate also put in be Dr. Dickerson. Order was received to give the infusion prescribed at 120ml/hr. Patient has tolerated med well. Patient denies any pain or distress at this time. Safety measures are in place, and patient has call light within reach will resume care and continue to monitor.
[2021-10-27] MEDS: INSULIN GLARGINE 100 UNITS/ML 10 ML VIAL SUBCUT SCH (22:04)
[2021-10-28 00:30] VITALS: BP_SYST 110
[2021-10-28] MEDS: IPRATROPIUM/ALBUTEROL SULFATE 3 ML AMPUL.NEB (DUONEB) INH SCH ×3 (01:00→13:00)
[2021-10-28] MEDS: HYDROCORTISONE SOD SUCC 100 MG/2 ML VIAL IVP SCH (06:07)
--- NOTE | 2021-10-28 06:42 | NUR ---
Patient is in bed resting no s/s of distress noted at this time. Patient had a large episode of bowel incontinence, loose brown stool. Partial bed bath and beto care was given and patient received a full linen change. Patient denies any pain or discomfort at this time. All current shift needs have been met at this time, safety protocols are in place, and patient has call light within reach. Will differ further care to AM shift for continuity of care.
--- NOTE | 2021-10-28 07:15 | NUR ---
OPENING NOTE REPORT RCVD BEDSIDE FROM OUTGOING NOC RN, ALL CARES ASSUMED.
[2021-10-28 08:00] VITALS: BP_SYST 119
[2021-10-28 08:08] LABS: ALANINE AMINOTRANSFERASE 20 U/L (12-78); ALBUMIN 2.2 g/dL (3.4-4.8); ANION GAP 13 (5-15); ASPARTATE AMINOTRANSFERASE 26 U/L (10-37); CHLORIDE 111 mmol/L (98-107); CREATININE 3.85 mg/dL (0.55-1.30); GLUCOSE 123 mg/dL (70-99); POTASSIUM 3.1 mmol/L (3.5-5.1); SODIUM SERUM 142 mmol/L (136-145); TOTAL BILIRUBIN 0.7 mg/dL (0.0-1.0); UREA NITROGEN, BLOOD 65 mg/dL (8-21)
[2021-10-28 08:23] LABS: BASOPHILS % (AUTO) 0.2 % (0.0-2.0); HEMATOCRIT 25.6 % (36-54); HEMOGLOBIN 8.6 g/dL (14.0-18.0); LYMPHOCYTES # (AUTO) 0.3 K/uL (1.0-5.5); LYMPHOCYTES % (AUTO) 3.2 % (20.5-51.5); MEAN CORPUSCULAR HEMOGLOBIN 30 pg (27-31); MEAN CORPUSCULAR HGB CONC 34 % (32-36); MEAN CORPUSCULAR VOLUME 88 fL (79.0-98.0); MONOCYTES # (AUTO) 0.8 K/uL (0.0-1.0); NEUTROPHILS # (AUTO) 8.5 K/uL (1.8-7.7); PLATELET COUNT (AUTO) 85 K/uL (130-430); RED BLOOD CELL COUNT(AUTO) 2.91 MIL/uL (4.2-6.2); RED CELL DISTRIBUTION WIDTH 17.7 % (9.0-15.0); WHITE BLOOD COUNT (AUTO) 9.6 K/uL (4.8-10.8)
[2021-10-28] MEDS: CHOLECALCIFEROL (VITAMIN D3) 2,000 UNIT TABLET PO SCH (08:51)
[2021-10-28] MEDS: PANTOPRAZOLE SODIUM 40 MG/VIAL (PROTONIX) IVP SCH (08:51)
[2021-10-28] MEDS: TACROLIMUS ANHYDROUS 0.5 MG CAPSULE (PROGRAF) PO SCH (08:51)
[2021-10-28] MEDS: SIMVASTATIN 10 MG TABLET PO SCH (08:51)
[2021-10-28] MEDS: POTASSIUM CHLORIDE 20 MEQ TAB.PRT.SR PO SCH (08:51)
[2021-10-28] MEDS: SODIUM BICARBONATE 650 MG TABLET PO SCH ×2 (08:51→12:32)
[2021-10-28] MEDS: ASPIRIN 81 MG TAB.CHEW PO SCH (08:51)
[2021-10-28] MEDS: LACTOBACILLUS RHAMNOSUS GG 1 CAP CAPSULE PO SCH (08:51)
[2021-10-28] MEDS: CALCIUM CARBONATE 500 MG/ TAB.CHEW PO SCH ×2 (08:52→12:32)
[2021-10-28] MEDS: BALSAM PERU/CASTOR OIL 56.7 GM OINT...G. TP SCH (08:52)
[2021-10-28] MEDS ORDERED: NEPHROVITE, (FOLIC ACID/VITAMIN B COMP W-C 1 TAB) PO SCH (09:00)
[2021-10-28 09:06] LABS: CALCIUM 6.2 mg/dL (8.4-11.0)
[2021-10-28] MEDS: INSULIN GLARGINE 100 UNITS/ML 10 ML VIAL SUBCUT SCH (09:09)
--- NOTE | 2021-10-28 10:59 | NUR ---
SPOKE WITH CALISTA AT [facility], REPORT GIVEN OVER PHONE PER CALISTA A BED ASSIGNMENT IS BEING MADE FOR TRANSFER.
[2021-10-28] MEDS: LR 1,000 ML IV SCH (11:23)
--- NOTE | 2021-10-28 11:24 | NUR ---
BS 154, NO COVERAGE PER SLIDING SCALE.
--- NOTE | 2021-10-28 11:51 | NUR ---
DR. TATE MAKING ROUNDS, BEDSIDE REPORT GIVEN. TO REVIEW CHART.
[2021-10-28] MEDS ORDERED: POTASSIUM CHLORIDE 20 MEQ TAB.PRT.SR PO ONE (12:15)
[2021-10-28] MEDS ORDERED: POTASSIUM CHLORIDE 20 MEQ/PKT PACKET PO ONE (12:15)
[2021-10-28 13:05] VITALS: BP_SYST 117
[2021-10-28] MEDS ORDERED: CALCIUM GLUCONATE 2 GM in NS 100 ML IV ONE (13:30)
--- NOTE | 2021-10-28 13:34 | NUR ---
SPOKE TO [facility], PATIENT WILL BE PICKED UP AT 1500 BY [facility], PATIENT IS GOING TO [facility] UNIT. PRIMARY RN WITH [facility] [phone], ACCEPTING MD IS DR. SOLORIO. DR. TATE AWARE OF TRANSPORT. CHARGE MADE AWARE.
[2021-10-28 13:43] VITALS: BP_SYST 121
--- NOTE | 2021-10-28 14:19 | NUR ---
REPORT CALLED TO RENE BEVERLY AT [facility],
--- NOTE | 2021-10-28 14:19 | NUR ---
PICC LINE DRESSING CHANGED TO BRITTANY USING STERILE TECHNIQUE, PT TOLERATED WELL.
[2021-10-28 14:47] LABS: NEUTROPHILS % (AUTO) 88.6 % (40.0-70.0)
--- NOTE | 2021-10-28 14:48 | NUR ---
PT TRANSFERRED Report given to RENE BEVERLY at [facility]. Transfer packet with Transfer Orders and Medication Reconciliation form given to EMT with report. Exitcare provided. [facility] ID band removed, replaced with ID band with pt's name and . IV catheter removed, intact and dressing applied, no active bleeding. All belongings sent with patient. Patient left floor via gurney escorted by EMT in no distress.
[2021-10-28] MEDS ORDERED: LIPASE/PROTEASE/AMYLASE 1 CAP PO SCH (18:00)
[2021-10-28] MEDS ORDERED: POTASSIUM CHLORIDE 20 MEQ/PKT PACKET PO SCH (21:00)
[2021-10-29] MEDS ORDERED: IPRATROPIUM/ALBUTEROL SULFATE 3 ML AMPUL.NEB (DUONEB) INH SCH (13:00)
== END 2021-10-28 14:48 | disposition short-term general hospital (02) | DRG 871 ==
LOC: SED 12:23 → SIC 14:50 → STU 10-26 22:09
PROVIDERS: ADMIT Internal Medicine; ATTEND Internal Medicine
PROC: 30233K1 Transfusion of Nonautologous Frozen Plasma into Peripheral Vein, Percutaneous Approach (ICD-10-PCS; 2021-10-25)
PROC: 02HV33Z Insertion of Infusion Device into Superior Vena Cava, Percutaneous Approach (ICD-10-PCS; 2021-10-25)
PROC: 30233N1 Transfusion of Nonautologous Red Blood Cells into Peripheral Vein, Percutaneous Approach (ICD-10-PCS; principal; 2021-10-26)
DX: A41.9 Sepsis, unspecified organism (principal); R65.21 Severe sepsis with septic shock; N17.0 Acute kidney failure with tubular necrosis; N39.0 Urinary tract infection, site not specified; D68.9 Coagulation defect, unspecified; Z94.2 Lung transplant status; I82.432 Acute embolism and thrombosis of left popliteal vein; E78.5 Hyperlipidemia, unspecified; B96.89 Other specified bacterial agents as the cause of diseases classified elsewhere; I12.9 Hypertensive chronic kidney disease with stage 1 through stage 4 chronic kidney disease, or unspecified chronic kidney disease; N18.9 Chronic kidney disease, unspecified; K52.9 Noninfective gastroenteritis and colitis, unspecified; J84.10 Pulmonary fibrosis, unspecified; Z20.822 Contact with and (suspected) exposure to COVID-19; D63.8 Anemia in other chronic diseases classified elsewhere; E83.51 Hypocalcemia; T45.515A Adverse effect of anticoagulants, initial encounter; E87.6 Hypokalemia; Z87.891 Personal history of nicotine dependence; Z79.899 Other long term (current) drug therapy; Z88.8 Allergy status to other drugs, medicaments and biological substances; Z88.5 Allergy status to narcotic agent; Y92.89 Other specified places as the place of occurrence of the external cause
CPT/HCPCS: 36415; 36430; 36600; 70450-TC; 71045; 76376; 76700-TC; 80048; 80053; 80076; 81000; 82009; 82272; 82550; 82803-TC; 82962; 83605; 83735; 84100; 85025; 85610-TC; 85730-TC; 86140; 86886; 86900; 86901; 86920; 87040; 87081; 87086; 87230-TC; 93005; 93970; 94640; 94760; 96361; 96374; 99291; C9113; G0378; J0610; J0692; J1720; J1815; J3430; J3480; J3490; J7030; J7050; J7060; J7507; J7517; P9021; P9059